=== PATIENT | female | born 1990 ===

== ENCOUNTER → 2020-08-12 | Outpatient (CLI) | payer OTHER, BC ==
[~2020-08-12] MED LIST: IBUP800; MAGNESIUM OXID500 MG PO; PRENATAL TABLE1 EAC2
== END ==
LOC: LAB 16:12 → LAB SHORT 16:12
DX: O09.92 Supervision of high risk pregnancy, unspecified, second trimester (principal)
CPT/HCPCS: 87081; 87150

== ENCOUNTER 2020-09-01 05:12 | Inpatient (IN) | payer OTHER, BC ==
[~2020-09-01] VITALS: Ht 162.6 cm; Wt 100.5 kg
[2020-09-01] MEDS ORDERED: PRENATAL TABLE1 EAC2 (05:30)
[2020-09-01] MEDS ORDERED: MAGNESIUM OXID500 MG PO (05:31)
[2020-09-01 05:53] LABS: BASOPHILS ABSOLUTE AUTO 0.03 K/mm3 (0.00-0.23); BASOPHILS PERCENT AUTO 0 % (0-2); EOSINOPHILS PERCENT AUTO 2 % (0-6); Hematocrit 35.2 % (33.0-51.0); Hemoglobin 11.9 g/dL (11.5-16.0); IMMATURE GRAN ABSOLUTE AUTO 0.16 K/mm3 (0.00-0.10); IMMATURE GRAN PERCENT AUTO 2 % (0-1); LYMPHOCYTES ABSOLUTE AUTO 2.48 K/mm3 (0.84-5.20); LYMPHOCYTES PERCENT AUTO 25 % (21-46); MONOCYTES PERCENT AUTO 7 % (4-13); Mean Corpuscular HGB 30.1 pg (26.0-34.0); Mean Corpuscular HGB Conc 33.8 g/dL (31.5-36.5); Mean Corpuscular Volume 89 fL (80-100); Mean Platelet Volume 10.6 fL (9.1-12.4); NEUTROPHILS ABSOLUTE AUTO 6.26 K/mm3 (1.96-9.15); NEUTROPHILS PERCENT AUTO 64 % (41-73); Platelet Count 201 K/mm3 (150-400); RDW Coefficient Variation 13.8 % (11.7-14.2); RDW Standard Deviation 45.2 fL (35.1-46.3); Red Blood Cell Count 3.96 M/mm3 (3.80-5.20); White Blood Cell Count 9.83 K/mm3 (4.00-11.30)
[2020-09-02 06:05] LABS: Hematocrit 32.1 % (33.0-51.0); Hemoglobin 10.8 g/dL (11.5-16.0); Mean Corpuscular HGB 30.6 pg (26.0-34.0); Mean Corpuscular HGB Conc 33.6 g/dL (31.5-36.5); Mean Corpuscular Volume 91 fL (80-100); Mean Platelet Volume 10.7 fL (9.1-12.4); Platelet Count 176 K/mm3 (150-400); RDW Coefficient Variation 13.8 % (11.7-14.2); RDW Standard Deviation 46.2 fL (35.1-46.3); Red Blood Cell Count 3.53 M/mm3 (3.80-5.20)
[2020-09-02] MEDS ORDERED: IBUP800 (08:32)
--- NOTE | 2020-09-02 13:20 | NUR ---
PT REPORTS HAS NO CONCERNS WITH DOING BABY CARE OR ABOUT THE BABY, SHE IS CONCERNED WITH PICKING BABY UP AND NOT BEING ABLE TO GET BACK IN BED HOLDING BABY DUE TO HER LOWER BACK HURTING FROM EPDIURAL. PT REPORTS HER BACK HURT LIKE THIS AFTER HER LAST BABY ALSO.
--- NOTE | 2020-09-02 17:50 | NUR ---
dc home with and baby, denies any questions, has a lower back ache, but last delivery had a back ache like this one from the epidural, will continue to use motrin and hot packs to lower back
== END 2020-09-02 17:50 | disposition home or self-care (01) | DRG 807 ==
LOC: OBS 05:12 → BC 05:15 → OBS 05:20 → BC 05:21
PROVIDERS: ADMIT Advanced Practice Midwife
PROC: 10E0XZZ Delivery of Products of Conception, External Approach (ICD-10-PCS; principal; 2020-09-01)
PROC: 3E033VJ Introduction of Other Hormone into Peripheral Vein, Percutaneous Approach (ICD-10-PCS; 2020-09-01)
PROC: 10907ZC Drainage of Amniotic Fluid, Therapeutic from Products of Conception, Via Natural or Artificial Opening (ICD-10-PCS; 2020-09-01)
PROC: 3E0R3BZ Introduction of Anesthetic Agent into Spinal Canal, Percutaneous Approach (ICD-10-PCS; 2020-09-01)
PROC: 00HU33Z Insertion of Infusion Device into Spinal Canal, Percutaneous Approach (ICD-10-PCS; 2020-09-01)
PROC: 3E0234Z Introduction of Serum, Toxoid and Vaccine into Muscle, Percutaneous Approach (ICD-10-PCS; 2020-09-01)
DX: O26.893 Other specified pregnancy related conditions, third trimester (principal); Z37.0 Single live birth; O99.344 Other mental disorders complicating childbirth; Z3A.39 39 weeks gestation of pregnancy; F41.9 Anxiety disorder, unspecified; Z67.41 Type O blood, Rh negative; F32.9 Major depressive disorder, single episode, unspecified; Z20.822 Contact with and (suspected) exposure to COVID-19; Z23 Encounter for immunization
CPT/HCPCS: 36415; 51702; 85025; 85027; 85460; 86850; 86900; 86901; 96372; A9270; J1885; J2001; J2210; J2590; J2791; J3010; J7120

== ENCOUNTER 2021-04-01 12:07 | Day surgery (SDC) | payer OTHER, BC ==
[~2021-04-01] VITALS: Ht 162.6 cm; Wt 90.4 kg
[2021-04-01] MEDS ORDERED: ESCI10 PO (12:37)
--- NOTE | 2021-04-01 13:57 | NUR ---
04/01/21 1357 Thania Duran 0.5% BUPIVICAINE 1:200,000 [facility] USED BY SURGEON
== END 2021-04-01 14:35 | disposition home or self-care (01) ==
LOC: ORSCSDS 12:07
PROVIDERS: Obstetrics & Gynecology
PROC: 0UBC7ZX Excision of Cervix, Via Natural or Artificial Opening, Diagnostic (ICD-10-PCS; principal; 2021-04-01 13:15)
DX: R87.613 High grade squamous intraepithelial lesion on cytologic smear of cervix (HGSIL) (principal); R87.810 Cervical high risk human papillomavirus (HPV) DNA test positive; F41.8 Other specified anxiety disorders; E66.9 Obesity, unspecified; Z68.34 Body mass index [BMI] 34.0-34.9, adult; Z79.899 Other long term (current) drug therapy
CPT/HCPCS: 88305; 88307; J0171; J1100; J1885; J2250; J2405; J2704; J3010; J7120

== ENCOUNTER → 2021-04-21 | Outpatient (CLI) | payer OTHER, BC ==
[~2021-04-21] MED LIST changes: +ESCI10 PO
[2021-04-22 10:23] LABS: Candida species (DNA Probe) Negative (NEGATIVE); G. vaginalis (DNA Probe) Negative (NEGATIVE); T. vaginalis (DNA Probe) Negative (NEGATIVE)
== END | disposition home or self-care (01) ==
LOC: LAB SHORT 17:17 → LAB 17:17
PROVIDERS: Obstetrics & Gynecology
DX: N89.8 Other specified noninflammatory disorders of vagina (principal)
CPT/HCPCS: 87480; 87510; 87660

== ENCOUNTER 2021-05-17 09:21 | Day surgery (SDC) | payer OTHER, BC ==
[~2021-05-17] VITALS: Ht 162.6 cm; Wt 93.9 kg
--- NOTE | 2021-05-17 09:35 | NUR ---
Ambulatory in Day Surgery History, Chart, Medications and Allergies reviewed before start of procedure.Patient confirms NPO status and agrees with scheduled surgery. Pre-Op teaching done. Pt verbalizes understanding.
[2021-05-17] MEDS ORDERED: BUPR100 PO (09:53)
[2021-05-17] MEDS ORDERED: BUSP5 PO (09:54)
[2021-05-17] MEDS ORDERED: IBUP800 PO (17:21)
[2021-05-17] MEDS ORDERED: OXAYDO5 M1 PO (17:24)
--- NOTE | 2021-05-17 18:01 | NUR ---
DISCHARGE SUMMARY PATIENT JOSE RAFAEL ADMIT POST OP DAY [address] ROB[address] NIC ONEAL. PATIENT ALERT AND ORIENTED. TOLERATING REGULAR DIET AND LIQUIDS. VOIDING WELL. AMBULATING IN ROOM. PAIN CONTROLLED WITH PO PAIN MEDS. LAP INCISION X4 TO ABD SCANT RED OOZING, STERI STRIPS INTACT. SCANT SPOTTING TO ANAHY PAD. DISCHARGE ORDERS OBTAINED. DISCHARGE EDUCATION GIVEN ON NEW MEDS, ACTIVITY, WOUND CARE, AND FOLLOW UP APPTS. IVS DC'D WNL. PT TOLERATED WELL.
--- NOTE | 2021-05-17 18:23 | NUR ---
DISCHARGE PT LEFT UNIT AT 1815 VIA WHEELCHAIR FOR HOME WITH SPOUSE.
== END 2021-05-17 18:16 | disposition home or self-care (01) ==
LOC: ORSCMMR 09:21 → SURS 13:35 → ORSCMMR 18:16
PROVIDERS: Obstetrics & Gynecology
PROC: 8E0W4CZ Robotic Assisted Procedure of Trunk Region, Percutaneous Endoscopic Approach (ICD-10-PCS; principal; 2021-05-17 10:30)
PROC: 0UT94ZZ Resection of Uterus, Percutaneous Endoscopic Approach (ICD-10-PCS; principal; 2021-05-17 10:30)
PROC: 0UT74ZZ Resection of Bilateral Fallopian Tubes, Percutaneous Endoscopic Approach (ICD-10-PCS; principal; 2021-05-17 10:30)
DX: D06.9 Carcinoma in situ of cervix, unspecified (principal); E66.9 Obesity, unspecified; Z68.35 Body mass index [BMI] 35.0-35.9, adult; Z79.899 Other long term (current) drug therapy
CPT/HCPCS: 58571; S2900; 88307; A9270; J0171; J0690; J1885; J2250; J2270; J2405; J2704; J2765; J3010; J7120

== ENCOUNTER 2022-03-12 20:18 | Emergency (ER) | payer OTHER ==
[~2022-03-12] VITALS: Ht 162.6 cm; Wt 83.9 kg
[~2022-03-12 20:18] MED LIST changes: +BUPR100 PO; +BUSP5 PO; +IBUP800 PO; +OXAYDO5 M1 PO
[2022-03-12] MEDS ORDERED: ALPR.5 (20:58)
[2022-03-12] MEDS ORDERED: HYDPAM25 (20:58)
[2022-03-12] MEDS ORDERED: CYCL10 PO (22:10)
== END 2022-03-12 22:23 | disposition home or self-care (01) ==
LOC: ER 20:18
DX: M54.12 Radiculopathy, cervical region (principal)
CPT/HCPCS: 72040; 93005; 93010; 99283-25

== ENCOUNTER → 2022-10-25 | Outpatient (CLI) | payer OTHER ==
[~2022-10-25] MED LIST changes: +ALPR.5; +CYCL10 PO; +HYDPAM25
[2022-10-25 15:05] LABS: BASOPHILS ABSOLUTE AUTO 0.04 K/mm3 (0.00-0.23); BASOPHILS PERCENT AUTO 1 % (0-2); EOSINOPHILS ABSOLUTE AUTO 0.13 K/mm3 (0.00-0.68); EOSINOPHILS PERCENT AUTO 2 % (0-6); Hematocrit 39.4 % (33.0-51.0); IMMATURE GRAN ABSOLUTE AUTO 0.03 K/mm3 (0.00-0.10); IMMATURE GRAN PERCENT AUTO 0 % (0-1); LYMPHOCYTES ABSOLUTE AUTO 2.25 K/mm3 (0.84-5.20); LYMPHOCYTES PERCENT AUTO 30 % (21-46); MONOCYTES ABSOLUTE AUTO 0.45 K/mm3 (0.16-1.47); MONOCYTES PERCENT AUTO 6 % (4-13); Mean Corpuscular Volume 88 fL (80-100); Mean Platelet Volume 9.3 fL (9.1-12.4); NEUTROPHILS ABSOLUTE AUTO 4.68 K/mm3 (1.96-9.15); NEUTROPHILS PERCENT AUTO 62 % (41-73); Platelet Count 293 K/mm3 (150-400); RDW Coefficient Variation 12.5 % (11.7-14.2); RDW Standard Deviation 40.5 fL (35.1-46.3); Red Blood Cell Count 4.49 M/mm3 (3.80-5.20); White Blood Cell Count 7.58 K/mm3 (4.00-11.30)
[2022-10-25 15:33] LABS: Albumin, Blood 3.8 g/dL (3.4-5.0); Albumin/Globulin Ratio 1.2 (0.8-1.8); Bilirubin, Total 0.1 mg/dL (0.1-1.0); Bun/Creatinine Ratio 31.1 (12.0-20.0); Calcium, Blood 8.4 mg/dL (8.5-10.1); Creatinine, Blood 0.61 mg/dL (0.40-1.00); Globulin, Blood 3.3 g/dL (2.2-4.0); Potassium, Blood 3.7 mmol/L (3.5-5.5); Thyroid Stimulating Hormone 0.788 uIU/mL (0.360-4.800); Total Protein, Blood 7.1 g/dL (6.4-8.2)
== END | disposition home or self-care (01) ==
LOC: LAB 14:38 → LAB SHORT 14:38
PROVIDERS: Physician Assistant
DX: R53.83 Other fatigue (principal); R42 Dizziness and giddiness
CPT/HCPCS: 80053; 84443; 85025